=== PATIENT | female | born 1960 | race Caucasian/White ===

== ENCOUNTER → 2018-04-17 | Outpatient (CLI) | payer OTHER ==
--- NOTE | 2018-04-17 17:29 | KCIC ---
HAND BILAT 3V, FOOT BILAT 3V History: Polyarthralgia.. Comparison: None are available Right hand: Mild degenerative changes are seen joint spaces are grossly maintained. No erosive changes. Small lucencies in the third metacarpal head likely cysts. Soft tissues appear intact. Bone demineralization. Left hand: Mild degenerative changes are seen. Joint spaces are grossly maintained. No evidence of erosive findings. No significant soft tissue abnormality. Bone demineralization. IMPRESSION: Only mild degenerative changes. No erosive disease or acute abnormality. Right foot Bifid morphology of the medial hallux sesamoid. Mild degenerative changes are seen. Alignment appears maintained. No erosive changes. Calcaneal enthesophyte at the aponeurosis origin. The posterosuperior calcaneus is irregular, with small ossicles, may be related to chronic insertional Achilles tendinosis. Mild soft tissue swelling at the Achilles insertion. Bone demineralization. Small benign-appearing foci of calcification are seen, greatest about the MTP joints. Left foot Mild degenerative changes are seen. No evidence of erosion. Alignment and joint spaces are intact. Bone demineralization. Small benign calcified foci are identified, particularly about the MTP joints. Enthesophytes at the plantar aponeurosis origin some of which are not united. There is soft tissue swelling at the Achilles insertion, with chronic appearing bone hypertrophy, enthesophytes as well as a small ossicle. IMPRESSION: 1. 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 2. Mild chronic findings. Electronically signed by: Finn Thakkar MD (04/17/2018 5:24 PM) [facility]
== END | disposition home or self-care (01) ==
LOC: KCIC 10:21
PROVIDERS: ATTEND Internal Medicine Rheumatology
DX: M19.042 Primary osteoarthritis, left hand (principal); M19.041 Primary osteoarthritis, right hand; M19.072 Primary osteoarthritis, left ankle and foot; M19.071 Primary osteoarthritis, right ankle and foot; M81.8 Other osteoporosis without current pathological fracture; R22.43 Localized swelling, mass and lump, lower limb, bilateral
CPT/HCPCS: 73130; 73630

== ENCOUNTER → 2019-06-16 | Outpatient (CLI) | payer OTHER ==
[~2019-06-16] MED LIST: ALLO300T67 PO; DULO60CA6 PO; ELET40TA PO; GALC120P SQ; HYDR-2759 PO; HYDR12.575 PO; HYDR200T5 PO; LEVO112T4 PO; MEDR10TA PO; NORT10CA PO; PROP60TA PO
--- NOTE | 2019-06-16 15:03 | EKG ---
[facility] [address] [place] [address] Test Date: 2019-06-16 Test Time: 15:03:28 Pat Name: ADY MALIK Department: Room: Gender: F Machine Tech: MARY : 1960 Requested By: BINU BHATIA Order Number: [id number] Reading MD: Kiran Bardales MD Measurements Intervals [place] Rate: 84 P: 0 UT: 144 QRS: -25 QRSD: 72 T: 25 QT: 370 QTc: 440 Interpretive Statements SINUS RHYTHM LAD NON-SPECIFIC ST/T CHANGES Electronically Signed On 06-17-2019 11:58:39 DAYCARE WORKER by Kiran Bardales MD
[2019-06-16 15:08] LABS: BASO # 0.1 x10^3/uL (0.0-0.2); BASO % 1 % (0-3); EOS # 0.3 x10^3/uL (0.0-0.7); EOS % 3 % (0-3); HEMATOCRIT 43.9 % (36.0-47.0); HEMOGLOBIN 14.9 g/dL (12.0-15.5); LYMPH # 2.1 x10^3/uL (1.0-4.8); LYMPH % 19 % (24-48); MEAN CORPUSCULAR HEMOGLOBIN 30 pg (25-35); MEAN CORPUSCULAR HGB CONC 34 g/dL (31-37); MEAN CORPUSCULAR VOLUME 89 fL (79-100); MONO # 0.7 x10^3/uL (0.0-1.1); MONO % 6 % (0-9); NEUT % 71 % (31-73); PLATELET COUNT 325 x10^3/uL (140-400); RED BLOOD COUNT 4.94 x10^6/uL (3.50-5.40); RED CELL DISTRIBUTION WIDTH 13.5 % (11.5-14.5); WHITE BLOOD COUNT 11.3 x10^3/uL (4.0-11.0)
[2019-06-16 15:23] LABS: ALBUMIN 3.8 g/dL (3.4-5.0); CALCIUM 9.2 mg/dL (8.5-10.1); GFR 57.1; POTASSIUM 3.7 mmol/L (3.5-5.1); TOTAL BILIRUBIN 0.4 mg/dL (0.2-1.0); TOTAL PROTEIN 7.5 g/dL (6.4-8.2)
[2019-06-16 15:33] LABS: FREE T4 1.87 ng/dL (0.76-1.46); THYROID STIM HORMONE (TSH) 0.278 uIU/mL (0.358-3.74)
--- NOTE | 2019-06-16 16:43 | RAD ---
EXAM: Chest, 2 views. HISTORY: Preoperative evaluation. Hysterectomy. COMPARISON: None. FINDINGS: 2 views of the chest are obtained. There is no infiltrate, pleural effusion or pneumothorax. The heart is normal in size. IMPRESSION: No acute pulmonary finding. Electronically signed by: Dottie Martin MD (06/16/2019 4:40 PM) [facility] [place]
--- NOTE | 2019-06-18 07:44 | NUR ---
EKG was reviewed by Dr. Jorge, no further testing needed. Fax note sent to Dr. Bran to inform her.
== END | disposition home or self-care (01) ==
LOC: SURGPAT 14:09
PROVIDERS: ATTEND Obstetrics & Gynecology
DX: Z01.818 Encounter for other preprocedural examination (principal); G47.30 Sleep apnea, unspecified; E03.9 Hypothyroidism, unspecified
CPT/HCPCS: 36415; 71046; 80053; 84439; 84443; 85025; 93005

== ENCOUNTER 2019-06-23 06:01 | Observation (INO) | payer OTHER ==
[2019-06-23] VITALS (13 sets, daily range): BP systolic 110–149; BP diastolic 61–86
[~2019-06-23] VITALS: Ht 172.7 cm; Wt 139.3 kg
[~2019-06-23 06:01] MED LIST changes: +ceFAZolin SODIUM 3 GM in IV DEXTROSE 5% 100ML 100 ML IV PRN
[2019-06-23] MEDS ORDERED: fentaNYL PF VIAL 100 MCG/2 ML VIAL IV PRN (07:00)
[2019-06-23] MEDS ORDERED: PROCHLORPERAZINE 10 MG/2 ML VIAL. IV PRN (07:00)
[2019-06-23] MEDS ORDERED: HYDROmorphone 2 MG/ML VIAL IV PRN (07:00)
[2019-06-23] MEDS ORDERED: MORPHINE SULFATE 2 MG/ML VIAL. IV PRN ×2 (07:00→12:00)
[2019-06-23] MEDS ORDERED: IV RINGERS,LACTATED 1000ML 1,000 ML IV SCH (07:00)
[2019-06-23] MEDS ORDERED: ROCURONIUM 50 MG/5 ML VIAL. ONE ×2 (07:14→10:50)
[2019-06-23] MEDS ORDERED: DEXAMETHASONE SOD PHOS 4 MG/ML VIAL ONE (07:15)
[2019-06-23] MEDS ORDERED: LIDOCAINE 2% PF 5 ML VIAL. ONE (07:15)
[2019-06-23] MEDS ORDERED: MIDAZOLAM HCL/PF 2 MG/2 ML VIAL. ONE (07:15)
[2019-06-23] MEDS ORDERED: PROPOFOL 20 ML IV ONE (07:15)
[2019-06-23] MEDS ORDERED: fentaNYL PF VIAL 250 MCG/5 ML VIAL ONE (07:15)
[2019-06-23] MEDS ORDERED: DESFLURANE > 120 MINUTES IH ONE (07:16)
[2019-06-23] MEDS ORDERED: ONDANSETRON PF 4 MG/2 ML VIAL. ONE (07:16)
[2019-06-23] MEDS ORDERED: BUPIVACAINE-EPI 0.25%-1:200000 MPF 30 ML VIAL. ONE (07:17)
[2019-06-23] MEDS ORDERED: NEOSTIGMINE METHYLSULFATE 5 MG/5 ML SYRINGE. ONE (09:08)
[2019-06-23] MEDS ORDERED: GLYCOPYRROLATE 1 MG/5 ML VIAL. ONE (09:08)
[2019-06-23] MEDS ORDERED: KETOROLAC 30 MG/ML VIAL. ONE (09:08)
[2019-06-23] MEDS ORDERED: ESTROGENS, CONJ VAGINAL CREAM 30GM TUBE. ONE (11:10)
[2019-06-23] MEDS ORDERED: fentaNYL PF VIAL 100 MCG/2 ML VIAL ONE (11:38)
[2019-06-23] MEDS ORDERED: PROCHLORPERAZINE 10 MG/2 ML VIAL. ONE (11:38)
[2019-06-23] MEDS: fentaNYL PF VIAL 100 MCG/2 ML VIAL IV PRN ×2 (11:52→12:09)
[2019-06-23] MEDS ORDERED: 0.9 % SODIUM CHLORIDE 10 ML DISP.SYRIN. IV PRN (12:00)
[2019-06-23] MEDS ORDERED: ONDANSETRON PF 4 MG/2 ML VIAL. IV PRN (12:00)
[2019-06-23] MEDS ORDERED: ZOLPIDEM 5 MG TABLET. PO PRN (12:00)
[2019-06-23] MEDS ORDERED: CALCIUM CARBONATE 500 MG TAB.CHEW PO PRN (12:00)
[2019-06-23] MEDS ORDERED: NALOXONE 0.4 MG/ML VIAL. IV PRN (12:00)
[2019-06-23] MEDS ORDERED: MAG HYDROX/ALUMINUM HYD/SIMETH 30 ML ORAL.SUSP PO PRN (12:00)
[2019-06-23] MEDS ORDERED: MAGNESIUM HYDROXIDE 2,400 MG/30 ML ORAL.SUSP. PO PRN (12:00)
[2019-06-23] MEDS ORDERED: diphenhydrAMINE 50 MG/ML VIAL IV PRN (12:00)
[2019-06-23] MEDS ORDERED: SIMETHICONE 80 MG TAB.CHEW PO PRN (12:00)
[2019-06-23] MEDS ORDERED: diphenhydrAMINE HCL 25 MG CAPSULE PO PRN (12:00)
[2019-06-23] MEDS ORDERED: oxyCODONE/APAP 5/325 1 TAB TABLET PO PRN (12:00)
[2019-06-23] MEDS ORDERED: LACTULOSE 20 GM/30 ML SOLUTION. PO PRN (12:00)
--- NOTE | 2019-06-23 12:00 | PDOC ---
BRIEF OPERATIVE NOTE Date: Jun 23, 2019 Pre-Op Diagnosis PMB, complex endometrial hyperplasia Post-Op Diagnosis same plus adhesive disease and enlarged uterus Procedure Performed LAVH/BSO/adhesiolysis Surgeon Dr. Mercedes Bran [employer] Research Analyst ALTAGRACIA Victoria Anesthesiologist Dr. Jorge Anesthesia Type: General Blood Loss 300cc IV Fluid 1300cc crystalloid Urine Output 130cc clear via wade Specimens Obtained cervix, uterus, bilateral tubes and ovaries Findings enlarged uterus; thick omental adhesions all down anterior abdominal wall under vertical skin scar,narrow atrophic vagina Complications none Operative Note [id number] MERCEDES BRAN MD Jun 23, 2019 12:00
--- NOTE | 2019-06-23 13:01 | OP ---
DATE OF SURGERY: 06/23/2019 PREOPERATIVE DIAGNOSES: Postmenopausal bleeding with complex endometrial hyperplasia found on a recent dilatation and curettage specimen. POSTOPERATIVE DIAGNOSES: Postmenopausal bleeding with complex endometrial hyperplasia found on a recent dilatation and curettage specimen, abdominal adhesive disease with an enlarged uterus. PROCEDURE: Laparoscopic-assisted vaginal hysterectomy, bilateral salpingo-oophorectomy, and adhesiolysis. SURGEON: Binu Bran MD GRAIN SHIPPER: Carrol Levi. ANESTHESIOLOGIST: Rachid Jorge MD ANESTHESIA: General. ESTIMATED BLOOD LOSS: 300 mL. URINE OUTPUT: 130 mL clear via Israel catheter. INTRAVENOUS FLUIDS: 1300 mL of Crystalloid. SPECIMENS: Cervix, uterus, bilateral tubes and ovaries. FINDINGS: An enlarged uterus, thick omental adhesions down the entire anterior abdominal wall under the vertical skin scar, a narrow atrophic vagina. COMPLICATIONS: None. DESCRIPTION OF PROCEDURE: This patient was taken to the operating room where general anesthesia was placed. The patient was placed in dorsal lithotomy position in Harrison stirrups. The patient's abdomen and vagina were both prepped and draped in the normal sterile fashion and a Israel catheter was inserted under sterile technique. Upon my arrival, a timeout was performed. She had received her 3 grams of Ancef and once everyone agreed on the procedure, site, and the patient, a bivalve speculum was placed in the patient's vagina. A single-tooth tenaculum was used to grasp the anterior lip of the cervix. A 10 mL of 0.25% Marcaine with epinephrine was used to circumferentially inject around the cervix for both hemodissection and hemostatic purposes later. The Valtchev uterine manipulator was then placed through the endocervical os, locked on the single tooth tenaculum and the bivalve speculum was then removed. Top gloves were discarded and changed. Attention was then turned to the abdomen where a left upper quadrant entry was made. Due to the vertical midline incision, I was worried about adhesions underneath, so I did a left upper quadrant entry. Opening patient pressure was 5 mmHg. A small incision was made. Farzana was used to dissect through the subcuticular layer to the fascia. The 5 mm Visiport was used to directly enter the abdominal cavity. Opening patient pressure was 5 mmHg. Carbon dioxide gas was then used to appropriately insufflate the abdominal cavity to maintain a pressure of 15 mmHg. The patient was placed in Trendelenburg position and indeed, there were very thick curtain of thick omental adhesions down the entire anterior abdominal wall. The left lower quadrant port was easily placed under direct visualization. I was able to even get around the adhesions to place the right lower quadrant port. Due to the patient's enlarged abdominal wall, I could not even reach the pelvis with the left upper quadrant, so I did start using the LigaSure, making sure it was all omentum and taking down some of the omental adhesions going skilled nursing up towards the umbilicus starting low and going high, so I could get a lower port in for the camera. Couple inches below the umbilicus, I was able to along that vertical midline scar get a small incision in and put a trocar in. I did take the long trocar on this. The others, I was able to do, but through the thick anterior abdominal wall, the little one would not even reach. I could get in, but it would not come through. So, I used the long one. The cuffs were insufflated with 4-5 mL of air on all 4 trocars. These were all 5 mm blunt disposable trocars. Three of them were placed under direct visualization; the left lower quadrant, right lower quadrant and infraumbilical one. The left upper quadrant was the initial one only. I did move the camera and looked at it as well and it was clear. Once this was all done, the left tube and ovary were elevated. I could find the ureter coursing low in the pelvis. I was able to cross the left infundibulopelvic ligament, cauterizing and cutting it in a stepwise fashion, pulling it over towards the uterus, crossing the left round ligament as well and starting the bladder flap from this side. Once the bladder was started from this side and pulled down, I was able to actually even get the uterines on this side. So the left side was very easily done abdominally and taking care of them immediately. Trying to manipulate the uterus as it was large and posterior, I could get it out and see the right side and her colon was in the way there. The uterine manipulator had actually moved, so I had to go back down and replace it, and then I changed my gloves again before coming above, so I could push cephalad and cut over to see the right side, elevating the right tube and ovary. I was able to find the ureter coursing low on the right side as well, so again staying high on the infundibulopelvic ligament right under the ovary, crossing the infundibulopelvic ligament with the LigaSure, cauterizing and cutting, going over again, crossing the right round ligament and then meeting that bladder flap anteriorly. Manipulating the uterus over on this side posteriorly to go down through the cardinal and broad ligaments was a challenge. There were no adhesions posteriorly, but it was just difficult to manipulate the uterus this way and it was a very narrow fit and the bowel was there. So, I did go down low on the left side. On the right side, I got the uterines and went down a little bit, but I did not get all the way down to the uterosacrals on the right side, just due to visualization abdominally. There was no active bleeding and like I said, the uterus was blanched, everything was free, the bladder was down. So at this point, all instruments were removed from the abdomen and attention was turned vaginally. The single tooth and Valtchev were removed. A short weighted speculum was placed in the patient's vagina. Thyroid Yari clamps were placed on the anterior and posterior lips of the cervix respectively. A scalpel was used to make a circumferential incision. Her tissue was so atrophic and just friable, it just tore off and bits even in the Laheys. I tried to replace the clamps and go back around. I was able to dissect the bladder off anteriorly and used a Ray-Lydia to push it up and out. I was able to elevate the posterior cervix and get in sharply with the curved Flores scissors in the posterior cul-de-sac. A #0 Vicryl stitch was used to secure the posterior peritoneum here to the vaginal cuff. It was tagged with a curved Farzana clamp. The needle was cut and passed off. The short weighted speculum was removed and replaced with the long weighted Miguel speculum in the posterior cul-de-sac. Curved Heaneys were placed on the patient's right uterosacral ligament. The tissue was so friable, I just wanted to tear, so I placed them again, was able to cut them with Flores scissors and place a #0 Vicryl stitch through the pedicle. Once it was tied, I took it through the vaginal cuff and tagged it with a straight Farzana clamp and cut and passed the needle off. This was done exactly the same on the patient's left side, double clamping the uterosacrals with curved Pushpa's, cutting with curved Flores scissors and suture ligating x 2 with 0 Vicryl, taking the second one through the vaginal cuff, securing uterosacral ligament to the vaginal cuff, tagging it with a straight Farzana clamp and passing the needle off. Once I did this, I was able to get in anteriorly, especially on that patient's left side that I got lower on and was able to swing the right angle clamp around the pedicle. There were a couple little pedicles of posterior leaf where the uterosacral was and then the side one, but I was able to cauterize and cut them in a stepwise fashion, completely freeing up the left side. I was able to sweep my finger around, make sure the bladder was up anteriorly and then get the right angle in on the right side as well, cauterizing and cutting with the vaginal LigaSure. The cervix, uterus, bilateral tubes and ovaries were then delivered in toto and passed off for permanent pathology. I never did find the anterior bladder peritoneum. It was up too high, so I kind of grasp just inside the cuff, elevated it. I used a sponge stick to examine the pedicles. There was some slight oozing from the patient's left side, I was able to put a burlisher on it and put a stitch on it with excellent results, and then cauterized just a piece of tissue that had torn very easily, by grasping it with Jamaican's and putting the vaginal LigaSure behind it. Once this was done and the sponge stick was used to examine all the pedicles, the long weighted Miguel speculum was removed and replaced with the short weighted vaginal speculum. Everything was examined and there was no active bleeding. So, 2-0 Vicryl was taken through just inside the cuff, the left uterosacral ligament, posterior peritoneum and right uterosacral ligament, thus closing the peritoneum in a pursestring like fashion. Once this was done, the right and left uterosacral tags were clipped. The cuff was closed in an anterior to posterior running locked fashion and tied to the posterior cuff tag. There was a vaginal laceration on the patient's left side that was repaired with 2-0 Vicryl as well in a running locked fashion over the cuff and then the cuff was imbricated in a few spots just to bring it back together as it was thin friable tissue and wherever I touch, just went in to tear or bleed. Once this was done, packing with Premarin cream was used due to the atrophy and the tearing, but there was no active bleeding and the cuff looked good, but I did place Premarin cream and packing in the vagina. Once this was done, all sponge, lap and needle counts had been correct x 2 by OR personnel vaginally. All gloves were discarded and changed, and attention was turned back above for a second look. The patient was placed back in Trendelenburg. The gas was reinsufflated. Copious irrigation revealed hemostasis. She had some slight oozing from the right side where there was a torn pedicle that I was able to grab with the LigaSure and cauterize. I looked at the cuff edges underneath the bladder flap where I could not reach. I lift it and Tisseel was placed here with excellent results and Tisseel was placed over all the pedicles, but there was no active bleeding seen anywhere at this point and again the right and left pericolic gutters have been clear. The cuff remained dry. I even took some of the gas out and the cuff remained okay. I went around with the camera and deflated all the 4-5 mL of air out of all the trocars. The cuff remained dry even after placing the Tisseel and watching it several minutes, went around and removed the left upper quadrant, the right lower quadrant, the left lower quadrant. Gas was then released from that infraumbilical port and then it was taken out as well. All 4 port sites were closed with 4-0 nylon at the skin and injected with local. The patient was then awakened from anesthesia and brought to recovery room in stable condition. BINU BRAN MD DR: ERIBERTO/geovanni JOB#: [id number] / [id number]
[2019-06-23] MEDS: HYDROcodone/APAP 5/325MG 1 TAB TABLET PO PRN ×2 (15:23→19:55)
[2019-06-23] MEDS ORDERED: NORTRIPTYLINE 10 MG CAPSULE PO SCH (21:00)
[2019-06-23] MEDS ORDERED: PROP60CA PO (21:54)
[2019-06-23] MEDS ORDERED: DULoxetine HCL 30 MG CAPSULE.DR PO SCH (22:00)
[2019-06-23] MEDS ORDERED: PROPRANOLOL 40 MG TABLET. PO SCH (22:00)
[2019-06-23] MEDS ORDERED: PROPRANOLOL ER 60 MG CAP.SA.24H. PO SCH (22:00)
[2019-06-24] MEDS: HYDROcodone/APAP 5/325MG 1 TAB TABLET PO PRN ×5 (00:47→13:12)
[2019-06-24 02:30] VITALS: BP 111/70
[2019-06-24 06:30] VITALS: BP 123/87
[2019-06-24] MEDS ORDERED: LEVOTHYROXINE 112 MCG TABLET PO SCH (07:30)
[2019-06-24 07:51] LABS: CALCIUM 9.1 mg/dL (8.5-10.1); CREATININE 0.9 mg/dL (0.6-1.0); GFR 64.5; POTASSIUM 3.9 mmol/L (3.5-5.1)
[2019-06-24] MEDS ORDERED: ALLOPURINOL 300 MG TABLET. PO SCH (09:00)
[2019-06-24] MEDS ORDERED: DULoxetine HCL 30 MG CAPSULE.DR PO SCH (09:00)
[2019-06-24] MEDS ORDERED: PROPRANOLOL 40 MG TABLET. PO SCH (09:00)
[2019-06-24] MEDS ORDERED: hydroCHLOROthiazide 12.5 MG CAPSULE PO SCH (09:00)
[2019-06-24 10:02] VITALS: BP 115/74
--- NOTE | 2019-06-24 11:14 | PDOC ---
SURGICAL PROGRESS NOTE Subjective Doing well without complaints. Tolerating regular diet, voiding without catheter, scant VB, ambulating well. +flatus Vital Signs Vital Signs Date Time Temp Pulse Resp B/P (MAP) Pulse Ox O2 Delivery O2 Flow Rate FiO2 06/24/19 10:04 18 98 Room Air 06/24/19 10:02 98.3 82 115/74 (88) 98.3 06/23/19 14:15 2.0 I&O Intake and Output0 06/24/19 07:00 Intake Total 1640 ml Output Total 780 ml Balance 860 ml Intake Oral 1200 ml Other 440 ml Output Urine Total 480 ml Estimated Blood Loss 300 ml PATIENT HAS A LEON: No General: Alert, Oriented X3, Cooperative, No acute distress HEENT: Atraumatic Heart: Regular rate Abdomen: Soft, No tenderness, Other (all port sites c/d/i) Extremities: No clubbing, No cyanosis, No tenderness/swelling Skin: No rashes, No breakdown Neuro: Normal speech Psych/Mental Status: Mental status NL, Mood NL Labs Laboratory Tests Test 06/24/19 06:50 Hematocrit 39.7 % (36.0-47.0) Sodium Level 140 mmol/L (136-145) Potassium Level 3.9 mmol/L (3.5-5.1) Chloride Level 102 mmol/L (98-107) Carbon Dioxide Level 25 mmol/L (21-32) Anion Gap 13 (6-14) Blood Urea Nitrogen 12 mg/dL (7-20) Creatinine 0.9 mg/dL (0.6-1.0) Estimated GFR (Cockcroft-Gault) 64.5 Glucose Level 137 mg/dL (70-99) Calcium Level 9.1 mg/dL (8.5-10.1) Laboratory Tests Test 06/24/19 06:50 Hematocrit 39.7 % (36.0-47.0) Sodium Level 140 mmol/L (136-145) Potassium Level 3.9 mmol/L (3.5-5.1) Chloride Level 102 mmol/L (98-107) Carbon Dioxide Level 25 mmol/L (21-32) Anion Gap 13 (6-14) Blood Urea Nitrogen 12 mg/dL (7-20) Creatinine 0.9 mg/dL (0.6-1.0) Estimated GFR (Cockcroft-Gault) 64.5 Glucose Level 137 mg/dL (70-99) Calcium Level 9.1 mg/dL (8.5-10.1) I have reviewed the following labs, vitals, nursing Pulmonary: No pertinent hx GI: No pertinent hx Heme/Onc: No pertinent hx ENT: Other (Chronic migraines) Renal/: No pertinent hx Problem List complex endometrial hyperplasia Assessment/Plan POD#1 s/p LAVH/BSO with adhesiolysis Routine PO care d/c to home later today NPV x 6 weeks light/limited activity x 2 weeks keep scheduled follow up in office already has narcotic pain meds OK for OTC ibuprofen as needed as well Migraine meds ok call or return sooner for any other questions or concerns not limited to but including pain unrelieved with pain meds, increased or unexplained vaginal bleeding or T>100.4 BINU BHATIA MD Jun 24, 2019 11:14
--- NOTE | 2019-06-24 11:16 | PDOC3 ---
Discharge Summary Visit Information Date of Admission: Jun 23, 2019 Date of Discharge: Jun 24, 2019 Final Diagnosis complex endometrial hyperplasia and adhesions Brief Hospital Course Allergies Allergies Coded Allergies Type Severity Reaction Last Updated Verified No Known Drug Allergies 06/16/19 No Vital Signs Vital Signs Date Time Temp Pulse Resp B/P (MAP) Pulse Ox O2 Delivery O2 Flow Rate FiO2 06/24/19 10:04 18 98 Room Air 06/24/19 10:02 98.3 82 115/74 (88) 98.3 06/23/19 14:15 2.0 Lab Results Laboratory Tests Test 06/24/19 06:50 Hematocrit 39.7 % (36.0-47.0) Sodium Level 140 mmol/L (136-145) Potassium Level 3.9 mmol/L (3.5-5.1) Chloride Level 102 mmol/L (98-107) Carbon Dioxide Level 25 mmol/L (21-32) Anion Gap 13 (6-14) Blood Urea Nitrogen 12 mg/dL (7-20) Creatinine 0.9 mg/dL (0.6-1.0) Estimated GFR (Cockcroft-Gault) 64.5 Glucose Level 137 mg/dL (70-99) Calcium Level 9.1 mg/dL (8.5-10.1) Laboratory Tests Test 06/24/19 06:50 Hematocrit 39.7 % (36.0-47.0) Sodium Level 140 mmol/L (136-145) Potassium Level 3.9 mmol/L (3.5-5.1) Chloride Level 102 mmol/L (98-107) Carbon Dioxide Level 25 mmol/L (21-32) Anion Gap 13 (6-14) Blood Urea Nitrogen 12 mg/dL (7-20) Creatinine 0.9 mg/dL (0.6-1.0) Estimated GFR (Cockcroft-Gault) 64.5 Glucose Level 137 mg/dL (70-99) Calcium Level 9.1 mg/dL (8.5-10.1) Brief Hospital Course Ms. Bourgeois is a 59 old female who presented with PMB and recent D&C showing complex endometrial hyperplasia. She underwent and LAVH/BSO with adhesiolysis without difficulty. She has had an unremarkable postoperative course with voiding without catheter, tolerating regular diet, ambulating well. Assessment Assessment POD#1 s/p LAVH/BSO with adhesiolysis Routine PO care d/c to home later today NPV x 6 weeks light/limited activity x 2 weeks keep scheduled follow up in office already has narcotic pain meds OK for OTC ibuprofen as needed as well Migraine meds ok call or return sooner for any other questions or concerns not limited to but including pain unrelieved with pain meds, increased or unexplained vaginal bleeding or T>100.4 Discharge Information Condition at Discharge: Stable Follow Up: Weeks Disposition/Orders: D/C to Home Scheduled Allopurinol (Zyloprim) 300 Mg Tablet, 300 MG PO DAILY for GOUT, (Reported) Entered as Reported by: LAZ ROLON on 06/16/191437 Last Action: Continued on 06/23/19737 by BINU BHATIA Duloxetine Hcl (Cymbalta) 60 Mg Capsule.dr, 60 MG PO DAILY for DEPRERSS, (Reported) Entered as Reported by: LAZ ROLON on 06/16/191437 Last Action: Converted on 06/23/19737 by BINU BHATIA Eletriptan Hbr (Relpax) 40 Mg Tablet, 40 MG PO DAILY for *, (Reported) Entered as Reported by: LAZ ROLON on 06/16/191437 Last Action: HELD on 06/23/19737 by BINU BHATIA Galcanezumab-Gnlm (Emgality) 120 Mg/1 Ml Pen.injctr, 120 MG SQ QMONTH for MIGRAINE, (Reported) Entered as Reported by: LAZ ROLON on 06/16/191437 Last Action: HELD on 06/23/19737 by BINU BHATIA Hydrochlorothiazide (Hydrochlorothiazide Capsule ) 12.5 Mg Capsule, 12.5 MG PO DAILY for DIURETIC, Ref 0 (Reported) Entered as Reported by: LAZ ROLON on 06/16/191437 Last Action: Continued on 06/23/19737 by BINU BHATIA Hydroxychloroquine Sulfate (Hydroxychloroquine Sulfate) 200 Mg Tablet, 200 MG PO BID for RA, (Reported) Entered as Reported by: LAZ ROLON on 06/16/191437 Last Action: HELD on 06/23/19737 by BINU BHATIA Levothyroxine Sodium (Levothyroxine Sodium) 112 Mcg Tablet, 112 MCG PO DAILYAC for THYROID SUPPLEMENT, #30 Ref 0 (Reported) Entered as Reported by: LAZ ROLON on 06/16/191437 Last Taken: Unknown Dose on 06/23/19444 Last Action: Continued on 06/23/19737 by BINU BHATIA Medroxyprogesterone Acetate (Provera) 10 Mg Tablet, 10 MG PO BID for HORMONES, (Reported) Entered as Reported by: LAZ ROLON on 06/16/191437 Last Action: HELD on 06/23/19737 by BINU BHATIA Nortriptyline Hcl (Nortriptyline Hcl) 10 Mg Capsule, 1 CAP PO QHS for MIGRAINE, #30 Ref 2 (Reported) Entered as Reported by: LAZ ROLON on 06/16/191437 Last Action: Continued on 06/23/19737 by BINU BHATIA Propranolol Hcl (Propranolol Hcl) 60 Mg Cap.sa.24h, 60 MG PO DAILY for migraine, (Reported) Entered as Reported by: TAMICA NAVA on 06/23/192153 Last Action: New Order on 06/23/192153 by TAMICA NAVA Scheduled PRN Hydrocodone/Acetaminophen (Hydrocodone-Acetamin 5-325 mg) 1 Each Tablet, 1 EACH PO Q4-6HRS PRN for PAIN, (Reported) Entered as Reported by: LAZ ROLON on 06/16/191437 Last Action: HELD on 06/23/19737 by BINU BHATIA Patient Instructions Patient Instructions POD#1 s/p LAVH/BSO with adhesiolysis Routine PO care d/c to home later today NPV x 6 weeks light/limited activity x 2 weeks keep scheduled follow up in office already has narcotic pain meds OK for OTC ibuprofen as needed as well Migraine meds ok call or return sooner for any other questions or concerns not limited to but including pain unrelieved with pain meds, increased or unexplained vaginal bleeding or T>100.4 Hemodynamically unstable?: No Operative site or wounds?: Yes Poss blood loss?: Yes Persistent Pain & Nausea?: No BINU BHATIA MD Jun 24, 2019 11:16
[2019-06-24 12:40] VITALS: BP 126/79
--- NOTE | 2019-06-24 13:25 | NUR ---
Discharge and follow up instructions reviewed with pt. Rx were given to pt by Dr. Bran prior to surgery. Pt denied any questions at time of D/C. Pt taken out f the hospital per w/c with her by her side.
[2019-06-24] MEDS ORDERED: PROPRANOLOL ER 60 MG CAP.SA.24H. PO SCH (21:00)
--- NOTE | 2019-06-25 16:06 | PATHOLOGY ---
[facility] Accession Number: [id number] . 01 Material submitted: . uterus - UTERUS,CERVIX,BILATERAL TUBES AND OVARIES . 01 Clinical history: . Endometrial hyperplasia, PMB . 02 Diagnosis: Uterus and attached bilateral fallopian tubes and ovaries, hysterectomy with bilateral salpingo-oophorectomy: - Residual complex atypical endometrial hyperplasia. See comment. - Deciduoid change of endometrial stroma with glandular atrophy and cystic changes within remaining endometrium, consistent with progestin effect. - Adenomyosis, uterine corpus, with myometrial hypertrophy (uterine weight 173 grams). - Leiomyomas, uterine corpus, the largest measuring 1.0 cm. - Anterior uterine serosal adhesions. - Congestion of bilateral fallopian tubes. - Paratubal cysts, bilateral. - Mild stromal hyperplasia with focal hyperthecosis of bilateral ovaries. (JPM:leon; 06/25/2019) [facility] 06/25/2019 1411 Local . 02 Comment: The entire endometrium is submitted for histologic evaluation. There is residual complex atypical endometrial hyperplasia in sections of the posterior endometrium. The remaining endometrium shows stromal deciduoid change with endometrial glandular atrophy and cystic changes, consistent with progestin effect. There is no evidence of malignancy. Sections of the uterus also show adenomyosis and leiomyomata. The case is also examined by Dr. Guerrero, who concurs with the diagnosis. (JPM:leon; 06/25/2019) . 02 Electronically signed: . Kendrick Claery MD, Pathologist NPI- [id number] . 01 Gross description: . The specimen is received in formalin, labeled "Kear, Yancy, uterus, cervix, bilateral tubes and ovaries" and consists of a 173 g uterus with attached cervix measuring 9.5 x 6.7 x 5.5 cm. Attached are the bilateral tubo-ovarian complexes. The right weighs 6 g consisting of a fimbriated fallopian tube measuring 8.5 cm in length and up to 0.5 cm in diameter attached to a 2.6 x 2.2 x 1.0 cm ovary. The left complex weighs 7 g consisting of a fimbriated fallopian tube measuring 5.8 cm in length and 0.5 cm in diameter attached to a 3.7 x 1.5 x 1.1 cm ovary. The uterine serosa is vega-brown with extensive anterior hemorrhagic adhesions. The approximate 0.8 cm cervical os is surrounded by ragged pink-vega to brown ectocervical mucosa. The posterior paracervical margin is inked black. It is bivalved revealing a pink-vega endocervical canal measuring 3.1 cm in length. The endometrial cavity is triangular measuring 4.4 cm in length and 3.3 cm in width which is lined by a pink-red endometrium measuring up to 0.2 cm. No polyps or mass lesions are identified. Serial sectioning reveals hemorrhage with possible nodular adenomyosis deep to the endometrium. The myometrium is trabeculated measuring up to 3.3 cm with multiple scattered white nodules measuring up to 1.0 cm. No additional mass lesions are identified. . Both fallopian tubes are purple azevedo with a few paratubal cysts measuring up to 1.4 cm (left). Sectioning each reveals a well-defined lumen and no gross lesions. Both ovaries reveal multiple corpora albicantia and no gross lesions. [employer] sections are submitted as follows: . A1: Anterior cervix A2: Posterior cervix A3-A9: Entire anterior endomyometrium from inferior to superior A10-A17: Entire posterior endomyometrium from inferior to superior A18: Nodules A19: Right fallopian tube A20: Right ovary A21: Left fallopian tube A22: Left ovary (SDY; 06/24/2019) SYU/SYU 06/24/2019 1043 Local . 02 Pathologist provided ICD-10: N85.02, N80.0, D25.9, N83.8 . 02 CPT . 345165 Specimen Comment: A courtesy copy of this report has been sent to [phone], [phone] Specimen Comment: [id number] Specimen Comment: Report sent to / DR THOMPSON Performed at: 01 [facility] [address] [facility] [address], [place], [place] [id number] MD Ad Guerrero MD Phone: [phone] Performed at: 02 [facility] [address], [place] [id number] MD Kendrick Cleary MD Phone: [phone]
== END 2019-06-24 13:25 | disposition home or self-care (01) ==
LOC: SURG 06:01 → 3 NORTH 12:20
PROVIDERS: ADMIT Obstetrics & Gynecology; ATTEND Obstetrics & Gynecology
DX: N95.0 Postmenopausal bleeding (principal); N85.00 Endometrial hyperplasia, unspecified; G43.909 Migraine, unspecified, not intractable, without status migrainosus
CPT/HCPCS: 36415; 58552; 80048; 85014; 86850; 86900; 86901; A7015; G0378; G0379; J0780; J1100; J2001; J2250; J2405; J2704; J2710; J3010; J3490; J7030; J7120; J1885